=== PATIENT | female | born 1995 | race African-American/Black ===

== ENCOUNTER 2022-08-02 22:15 | Emergency (ER) | payer OTHER ==
[~2022-08-02] VITALS: Ht 170.2 cm; Wt 108.9 kg
[2022-08-02] MEDS ORDERED: PRENA1 TRUE CO1 EACH (22:23)
[2022-08-03] MEDS ORDERED: ACETAMINOPHEN650 M2 PO (05:35)
== END 2022-08-03 05:41 | disposition home or self-care (01) ==
LOC: ER 22:15
DX: N93.9 Abnormal uterine and vaginal bleeding, unspecified (principal); R10.2 Pelvic and perineal pain; Q51.3 Bicornate uterus

== ENCOUNTER 2022-09-06 18:33 | Emergency (ER) | payer OTHER ==
[~2022-09-06] VITALS: Ht 170.2 cm; Wt 109.8 kg
[~2022-09-06 18:33] MED LIST: ACETAMINOPHEN650 M2 PO; PRENA1 TRUE CO1 EACH
[2022-09-06] MEDS ORDERED: FOLIC ACID0.4 MG (19:20)
== END 2022-09-06 21:26 | disposition home or self-care (01) ==
LOC: ER 18:33
DX: O20.9 Hemorrhage in early pregnancy, unspecified (principal); Z3A.10 10 weeks gestation of pregnancy

== ENCOUNTER 2022-12-18 09:00 | Emergency (ER) | payer OTHER ==
[~2022-12-18] VITALS: Ht 170.2 cm; Wt 104.3 kg
[~2022-12-18 09:00] MED LIST changes: +FOLIC ACID0.4 MG
[2022-12-18] MEDS ORDERED: NITROFURANTOIN100 MG PO (12:15)
== END 2022-12-18 12:52 | disposition home or self-care (01) ==
LOC: ER 09:00
DX: O23.42 Unspecified infection of urinary tract in pregnancy, second trimester (principal); N39.0 Urinary tract infection, site not specified; O21.9 Vomiting of pregnancy, unspecified; Z3A.25 25 weeks gestation of pregnancy; R19.7 Diarrhea, unspecified

== ENCOUNTER 2022-12-26 13:03 | Outpatient (CLI) | payer OTHER ==
[~2022-12-26 13:03] MED LIST changes: +NITROFURANTOIN100 MG PO
== END 2022-12-26 15:53 | disposition home or self-care (01) ==
LOC: PRENATAL 13:03
PROVIDERS: ATTEND Obstetrics & Gynecology Maternal & Fetal Medicine
DX: O35.9XX0 Maternal care for (suspected) fetal abnormality and damage, unspecified, not applicable or unspecified (principal); O35.3XX0 Maternal care for (suspected) damage to fetus from viral disease in mother, not applicable or unspecified; O10.019 Pre-existing essential hypertension complicating pregnancy, unspecified trimester; O99.210 Obesity complicating pregnancy, unspecified trimester; Z3A.26 26 weeks gestation of pregnancy

== ENCOUNTER 2023-01-19 14:33 | Inpatient (IN) | payer OTHER ==
[~2023-01-19] VITALS: Ht 170.2 cm; Wt 103.9 kg
[2023-01-20] MEDS ORDERED: NIFEDIPINE20 MG PO (08:35)
== END 2023-01-22 17:05 | disposition home or self-care (01) | DRG 833 ==
LOC: OBS/DEL 14:33 → LDR 01-20 08:27 → OB/GYN 01-21 20:23
PROVIDERS: ADMIT Obstetrics & Gynecology Obstetrics; ATTEND Obstetrics & Gynecology Obstetrics
PROC: 4A1HXCZ Monitoring of Products of Conception, Cardiac Rate, External Approach (ICD-10-PCS; principal; 2023-01-20)
DX: O60.03 Preterm labor without delivery, third trimester (principal); Z3A.29 29 weeks gestation of pregnancy; Z20.822 Contact with and (suspected) exposure to COVID-19

== ENCOUNTER 2023-02-04 09:31 | Outpatient (CLI) | payer OTHER ==
[~2023-02-04 09:31] MED LIST changes: +NIFEDIPINE20 MG PO
== END 2023-02-04 10:35 | disposition home or self-care (01) ==
LOC: PRENATAL 09:31
PROVIDERS: ATTEND Obstetrics & Gynecology Maternal & Fetal Medicine
DX: O26.849 Uterine size-date discrepancy, unspecified trimester (principal); O36.8199 Decreased fetal movements, unspecified trimester, other fetus; O99.210 Obesity complicating pregnancy, unspecified trimester; O10.019 Pre-existing essential hypertension complicating pregnancy, unspecified trimester; Z3A.32 32 weeks gestation of pregnancy

== ENCOUNTER 2023-02-24 10:44 | Emergency (ER) | payer OTHER ==
[~2023-02-24] VITALS: Ht 170.2 cm; Wt 103.9 kg
== END 2023-02-24 14:31 | disposition home or self-care (01) ==
LOC: ER 10:44
DX: R05.9 Cough, unspecified (principal); Z20.822 Contact with and (suspected) exposure to COVID-19

== ENCOUNTER 2023-03-04 08:51 | Outpatient (CLI) | payer OTHER | END 2023-03-04 09:57 | disposition home or self-care (01) | LOC: PRENATAL 08:51 | PROVIDERS: ATTEND Obstetrics & Gynecology Maternal & Fetal Medicine | DX: O26.849 Uterine size-date discrepancy, unspecified trimester (principal); O36.8199 Decreased fetal movements, unspecified trimester, other fetus; O10.019 Pre-existing essential hypertension complicating pregnancy, unspecified trimester; O99.210 Obesity complicating pregnancy, unspecified trimester; O36.5990 Maternal care for other known or suspected poor fetal growth, unspecified trimester, not applicable or unspecified; O41.00X0 Oligohydramnios, unspecified trimester, not applicable or unspecified; Z3A.36 36 weeks gestation of pregnancy ==